=== PATIENT | female | born 1945 | race Caucasian/White ===

== ENCOUNTER → 2019-01-03 | Outpatient (CLI) | payer MEDICARE ==
[~2019-01-03] MED LIST: FEXO180 PO; MULVITMINF PO; PRAV40 PO; PROACE100 PO
== END | disposition home or self-care (01) ==
LOC: LAB SHORT 08:40 → LAB EV 08:40
DX: N39.0 Urinary tract infection, site not specified (principal)
CPT/HCPCS: 87077; 87086; 87186

== ENCOUNTER 2019-02-07 13:56 | Day surgery (SDC) | payer MEDICARE ==
[~2019-02-07] VITALS: Ht 160 cm; Wt 49.3 kg
[~2019-02-07 13:56] MED LIST changes: +BIOTIN1 MG; +CALCIUM 500-VI1 EAC1 PO; +CYAN500; +MAGOXI400; +MONT10T PO; +Naproxen500 M1 PO; +Omeprazole20 M1
--- NOTE | 2019-02-07 14:52 | NUR ---
02/07/19 1452 Asmita Dillard CALL LIGHT WITHIN REACH
== END 2019-02-07 16:22 | disposition home or self-care (01) ==
LOC: ORSCSDS 13:56
PROVIDERS: Surgery
PROC: 0DBK8ZX Excision of Ascending Colon, Via Natural or Artificial Opening Endoscopic, Diagnostic (ICD-10-PCS; principal; 2019-02-07 15:15)
DX: Z12.11 Encounter for screening for malignant neoplasm of colon (principal); D12.2 Benign neoplasm of ascending colon; K57.30 Diverticulosis of large intestine without perforation or abscess without bleeding; Z86.010 Personal history of colon polyps; E78.5 Hyperlipidemia, unspecified; Z79.899 Other long term (current) drug therapy
CPT/HCPCS: J2704; J7120

== ENCOUNTER 2020-04-02 11:38 | Day surgery (SDC) | payer MEDICARE, OTHER ==
[~2020-04-02] VITALS: Ht 160 cm; Wt 51.2 kg
[2020-04-02] MEDS ORDERED: VENL37.5 PO (12:20)
[2020-04-02] MEDS ORDERED: VITAMIN D3125 MC4 PO (12:20)
--- NOTE | 2020-04-02 14:08 | NUR ---
04/02/20 1408 Darlene Varghese (Yadira RECTAL SWAB COLLECTED BY DR. MUNGUIA PER PT'S REQUEST IN ATTEMPTS TO CLEAR ESBL DX.
== END 2020-04-02 14:06 | disposition home or self-care (01) ==
LOC: ORSCSDS 11:38
PROVIDERS: Surgery
PROC: 0DBK8ZX Excision of Ascending Colon, Via Natural or Artificial Opening Endoscopic, Diagnostic (ICD-10-PCS; principal; 2020-04-02 13:00)
DX: Z86.010 Personal history of colon polyps (principal); D12.2 Benign neoplasm of ascending colon; E78.5 Hyperlipidemia, unspecified; Z79.899 Other long term (current) drug therapy
CPT/HCPCS: 87077; 87081; 88305; J2405; J2704; J7120

== ENCOUNTER → 2021-05-18 | Outpatient (CLI) | payer MEDICARE, OTHER ==
[~2021-05-18] MED LIST changes: +VENL37.5 PO; +VITAMIN D3125 MC4 PO
== END | disposition home or self-care (01) ==
LOC: LAB SHORT 12:10 → LAB 12:10
DX: D22.5 Melanocytic nevi of trunk (principal)
CPT/HCPCS: 88305

== ENCOUNTER → 2021-08-07 | Outpatient (CLI) | payer MEDICARE, OTHER | LOC: LAB SHORT 08:30 | DX: R30.0 Dysuria (principal) | CPT/HCPCS: 87077; 87086; 87186 ==

== ENCOUNTER → 2021-10-26 | Outpatient (CLI) | payer MEDICARE, OTHER | END | disposition home or self-care (01) | LOC: LAB SHORT 11:35 → LAB 11:35 | DX: N39.0 Urinary tract infection, site not specified (principal) | CPT/HCPCS: 87077; 87086; 87186 ==

== ENCOUNTER → 2022-06-01 | Outpatient (CLI) | payer MEDICARE, OTHER ==
[2022-06-01 16:05] LABS: BASOPHILS ABSOLUTE AUTO 0.03 K/mm3 (0.00-0.23); BASOPHILS PERCENT AUTO 1 % (0-2); EOSINOPHILS ABSOLUTE AUTO 0.01 K/mm3 (0.00-0.68); EOSINOPHILS PERCENT AUTO 0 % (0-6); Hematocrit 43.1 % (33.0-51.0); Hemoglobin 14.1 g/dL (11.5-16.0); IMMATURE GRAN ABSOLUTE AUTO 0.01 K/mm3 (0.00-0.10); IMMATURE GRAN PERCENT AUTO 0 % (0-1); LYMPHOCYTES ABSOLUTE AUTO 0.67 K/mm3 (0.84-5.20); LYMPHOCYTES PERCENT AUTO 14 % (21-46); MONOCYTES ABSOLUTE AUTO 0.45 K/mm3 (0.16-1.47); MONOCYTES PERCENT AUTO 9 % (4-13); Mean Corpuscular HGB 30.9 pg (26.0-34.0); Mean Corpuscular HGB Conc 32.7 g/dL (31.5-36.5); Mean Corpuscular Volume 95 fL (80-100); Mean Platelet Volume 9.2 fL (9.1-12.4); NEUTROPHILS ABSOLUTE AUTO 3.75 K/mm3 (1.96-9.15); NEUTROPHILS PERCENT AUTO 76 % (41-73); Platelet Count 259 K/mm3 (150-400); RDW Coefficient Variation 12.3 % (11.7-14.2); RDW Standard Deviation 42.7 fL (35.1-46.3); Red Blood Cell Count 4.56 M/mm3 (3.80-5.20); White Blood Cell Count 4.92 K/mm3 (4.00-11.30)
[2022-06-01 16:53] LABS: Alanine Aminotransfer (ALT/SGP 46 U/L (12-78); Albumin, Blood 4.1 g/dL (3.4-5.0); Albumin/Globulin Ratio 1.4 (0.8-1.8); Alk Phos 52 U/L (50-136); Anion Gap 4 mmol/L (6-16); Aspartate Aminotrans (AST/SGOT 39 U/L (12-37); Bilirubin, Total 0.5 mg/dL (0.1-1.0); Blood Urea Nitrogen 17 mg/dL (8-24); Bun/Creatinine Ratio 24.4 (12.0-20.0); CHOL/HDL RATIO 2.2; CO2, Blood 31 mmol/L (21-32); Calcium, Blood 9.6 mg/dL (8.5-10.1); Chloride, Blood 106 mmol/L (98-108); Cholesterol 191 mg/dL (50-200); Globulin, Blood 2.9 g/dL (2.2-4.0); Glomerular Filtration Rate 91 (60-); Glucose, Blood 99 mg/dL (70-99); HDL Cholesterol 86 mg/dL (>39); LDL/HDL RATIO 1.1; Low Density Lipoprotein Chol 94 mg/dL (0-110); Potassium, Blood 3.9 mmol/L (3.5-5.5); Sodium, Blood 141 mmol/L (136-145); Triglycerides 54 mg/dL (30-160); Very Low Density Lipoprot Chol 10 mg/dL (6-32)
== END | disposition home or self-care (01) ==
LOC: LAB SHORT 12:40
PROVIDERS: Internal Medicine
DX: E78.2 Mixed hyperlipidemia (principal)
CPT/HCPCS: 80053; 80061; 85025

== ENCOUNTER → 2022-12-06 | Outpatient (CLI) | payer MEDICARE, OTHER | END | disposition home or self-care (01) | LOC: LAB SHORT 13:10 → LAB 13:10 | DX: R30.0 Dysuria (principal) | CPT/HCPCS: 87077; 87086; 87186 ==

== ENCOUNTER → 2023-03-27 | Outpatient (CLI) | payer MEDICARE, OTHER | END | disposition home or self-care (01) | LOC: LAB SHORT 17:26 → LAB 17:26 | DX: N39.0 Urinary tract infection, site not specified (principal); F44.89 Other dissociative and conversion disorders | CPT/HCPCS: 87077; 87086; 87186 ==

== ENCOUNTER → 2023-10-16 | Outpatient (CLI) | payer MEDICARE, OTHER ==
[2023-10-16 16:32] LABS: BASOPHILS ABSOLUTE AUTO 0.03 K/mm3 (0.00-0.23); BASOPHILS PERCENT AUTO 1 % (0-2); EOSINOPHILS ABSOLUTE AUTO 0.01 K/mm3 (0.00-0.68); EOSINOPHILS PERCENT AUTO 0 % (0-6); Hematocrit 39.1 % (33.0-51.0); Hemoglobin 13.1 g/dL (11.5-16.0); IMMATURE GRAN ABSOLUTE AUTO 0.02 K/mm3 (0.00-0.10); IMMATURE GRAN PERCENT AUTO 1 % (0-1); LYMPHOCYTES ABSOLUTE AUTO 0.89 K/mm3 (0.84-5.20); LYMPHOCYTES PERCENT AUTO 21 % (21-46); MONOCYTES ABSOLUTE AUTO 0.37 K/mm3 (0.16-1.47); MONOCYTES PERCENT AUTO 9 % (4-13); Mean Corpuscular HGB 30.8 pg (26.0-34.0); Mean Corpuscular HGB Conc 33.5 g/dL (31.5-36.5); Mean Corpuscular Volume 92 fL (80-100); Mean Platelet Volume 9.2 fL (9.1-12.4); NEUTROPHILS ABSOLUTE AUTO 2.94 K/mm3 (1.96-9.15); NEUTROPHILS PERCENT AUTO 69 % (41-73); Platelet Count 270 K/mm3 (150-400); RDW Coefficient Variation 12.6 % (11.7-14.2); RDW Standard Deviation 42.4 fL (35.1-46.3); Red Blood Cell Count 4.25 M/mm3 (3.80-5.20); White Blood Cell Count 4.26 K/mm3 (4.00-11.30)
[2023-10-17 19:11] LABS: A/G RATIO 2.3 (1.2-2.2); BILIRUBIN, TOTAL 0.5 mg/dL (0.0-1.2); CALCIUM, SERUM 9.2 mg/dL (8.7-10.3); CREATININE, SERUM 0.66 mg/dL (0.57-1.00); POTASSIUM, SERUM 4.2 mmol/L (3.5-5.2); PROTEIN, TOTAL, SERUM 6.5 g/dL (6.0-8.5)
== END | disposition home or self-care (01) ==
LOC: LAB SHORT 13:37 → LAB 13:37
PROVIDERS: Family Medicine
DX: R41.3 Other amnesia (principal); R79.9 Abnormal finding of blood chemistry, unspecified; F02.82 Dementia in other diseases classified elsewhere, unspecified severity, with psychotic disturbance
CPT/HCPCS: 80053; 84443; 85025

== ENCOUNTER → 2023-11-15 | Outpatient (CLI) | payer MEDICARE, OTHER ==
[2023-11-16 14:17] LABS: Appearance, Urine Cloudy (Clear); Bilirubin, Urine Neg (Neg); Blood, Urine Neg (Neg); Color, Urine Yellow (P-Yellow); Glucose Qualitative, Urine Neg (Neg); Ketones, Urine 1+ (Neg); Leukocyte Esterase, Urine 2+ (Neg); Nitrite, Urine Neg (Neg); Protein, Urine Neg (Neg); Specific Gravity, Urine 1.025 (1.003-1.022); Urobilinogen, Urine NORM (Normal)
[2023-11-16 15:11] LABS: Amorphous Heavy (0-Heavy); Calcium Oxalate Crystals Mod /hpf
[2023-11-16 15:14] LABS: Bacteria Few /hpf; Red Blood Cells, Urine 0-2 /hpf (0-2); Squamous Epithelial Cells Few /hpf (Few); White Blood Cells, Urine 0-2 /hpf (0-5)
== END | disposition home or self-care (01) ==
LOC: LAB SHORT 18:10
PROVIDERS: Family Medicine
DX: N39.0 Urinary tract infection, site not specified (principal)
CPT/HCPCS: 81001; 87086

== ENCOUNTER 2023-11-16 18:53 | Emergency (ER) | payer OTHER, MEDICARE ==
[~2023-11-16] VITALS: Ht 157.5 cm; Wt 45.4 kg
[2023-11-16] MEDS ORDERED: Acetaminophen 325 MG TABLET PO ONE (19:15)
[2023-11-16] MEDS ORDERED: Lidocaine 4% 1 Patch TOP ONE (19:15)
[2023-11-16 19:25] LABS: BASOPHILS ABSOLUTE AUTO 0.03 K/mm3 (0.00-0.23); BASOPHILS PERCENT AUTO 1 % (0-2); EOSINOPHILS ABSOLUTE AUTO 0.03 K/mm3 (0.00-0.68); EOSINOPHILS PERCENT AUTO 1 % (0-6); Hematocrit 39.1 % (33.0-51.0); IMMATURE GRAN ABSOLUTE AUTO 0.01 K/mm3 (0.00-0.10); IMMATURE GRAN PERCENT AUTO 0 % (0-1); LYMPHOCYTES ABSOLUTE AUTO 1.03 K/mm3 (0.84-5.20); LYMPHOCYTES PERCENT AUTO 22 % (21-46); MONOCYTES ABSOLUTE AUTO 0.44 K/mm3 (0.16-1.47); MONOCYTES PERCENT AUTO 9 % (4-13); Mean Corpuscular HGB 30.7 pg (26.0-34.0); Mean Corpuscular HGB Conc 33.2 g/dL (31.5-36.5); Mean Corpuscular Volume 92 fL (80-100); NEUTROPHILS ABSOLUTE AUTO 3.22 K/mm3 (1.96-9.15); NEUTROPHILS PERCENT AUTO 68 % (41-73); Platelet Count 259 K/mm3 (150-400); RDW Coefficient Variation 12.5 % (11.7-14.2); RDW Standard Deviation 42.5 fL (35.1-46.3); Red Blood Cell Count 4.23 M/mm3 (3.80-5.20); White Blood Cell Count 4.76 K/mm3 (4.00-11.30)
[2023-11-16 19:36] LABS: Albumin, Blood 3.9 g/dL (3.4-5.0); Albumin/Globulin Ratio 1.3 (0.8-1.8); Bilirubin, Total 0.5 mg/dL (0.1-1.0); Calcium, Blood 9.1 mg/dL (8.5-10.1); Creatinine, Blood 0.7 mg/dL (0.40-1.00); Potassium, Blood 3.6 mmol/L (3.5-5.5); Total Protein, Blood 6.9 g/dL (6.4-8.2)
[2023-11-16 21:30] VITALS: BP 111/69
== END 2023-11-16 22:59 | disposition home or self-care (01) ==
LOC: ER 18:53
PROVIDERS: Student in an Organized Health Care Education/Training Program
DX: R07.81 Pleurodynia (principal); M54.2 Cervicalgia; E78.5 Hyperlipidemia, unspecified; Z79.899 Other long term (current) drug therapy; Z88.6 Allergy status to analgesic agent; Z88.8 Allergy status to other drugs, medicaments and biological substances; W01.0XXA Fall on same level from slipping, tripping and stumbling without subsequent striking against object, initial encounter
CPT/HCPCS: 70450; 71101; 72125; 80053; 85025; 93005; 93010; 99284-25; A9270

== ENCOUNTER → 2023-11-21 | Outpatient (CLI) | payer MEDICARE, OTHER ==
[2023-11-21 16:16] LABS: BASOPHILS ABSOLUTE AUTO 0.03 K/mm3 (0.00-0.23); BASOPHILS PERCENT AUTO 1 % (0-2); EOSINOPHILS ABSOLUTE AUTO 0.03 K/mm3 (0.00-0.68); EOSINOPHILS PERCENT AUTO 1 % (0-6); Hemoglobin 13.2 g/dL (11.5-16.0); IMMATURE GRAN PERCENT AUTO 0 % (0-1); LYMPHOCYTES ABSOLUTE AUTO 1.14 K/mm3 (0.84-5.20); LYMPHOCYTES PERCENT AUTO 24 % (21-46); MONOCYTES ABSOLUTE AUTO 0.41 K/mm3 (0.16-1.47); MONOCYTES PERCENT AUTO 9 % (4-13); Mean Corpuscular HGB 30.6 pg (26.0-34.0); Mean Corpuscular Volume 93 fL (80-100); Mean Platelet Volume 8.7 fL (9.1-12.4); NEUTROPHILS ABSOLUTE AUTO 3.24 K/mm3 (1.96-9.15); NEUTROPHILS PERCENT AUTO 67 % (41-73); Platelet Count 260 K/mm3 (150-400); RDW Coefficient Variation 12.6 % (11.7-14.2); RDW Standard Deviation 42.8 fL (35.1-46.3); Red Blood Cell Count 4.32 M/mm3 (3.80-5.20); White Blood Cell Count 4.85 K/mm3 (4.00-11.30)
[2023-11-21 16:26] LABS: Albumin, Blood 3.8 g/dL (3.4-5.0); Albumin/Globulin Ratio 1.2 (0.8-1.8); Bilirubin, Total 0.5 mg/dL (0.1-1.0); Creatinine, Blood 0.79 mg/dL (0.40-1.00); Globulin, Blood 3.3 g/dL (2.2-4.0); Potassium, Blood 3.9 mmol/L (3.5-5.5); Total Protein, Blood 7.1 g/dL (6.4-8.2)
== END | disposition home or self-care (01) ==
LOC: LAB SHORT 16:11
PROVIDERS: Chiropractor
DX: E86.0 Dehydration (principal)
CPT/HCPCS: 80053; 85025

== ENCOUNTER 2024-01-19 10:15 | Emergency (ER) | payer OTHER, MEDICARE ==
[~2024-01-19] VITALS: Ht 157.5 cm; Wt 42.6 kg
[~2024-01-19 10:15] MED LIST changes: +ACET325 PO; +CARBLEV25 PO; +CEPH500 PO; +DONEPEZIL HCL10 MG PO; +FAMO20 PO; +LOPE2C PO; +MAGNESIUM OXID500 MG PO; +MIRALAX17 GM PO; +MIRT30 PO; +PRAM.125 PO; +SENN187 PO; +TURMERIC-GINGE1 EACH PO; +VITAMIN B12500 MCG
[2024-01-19 11:22] VITALS: BP 94/75
== END 2024-01-19 12:37 | disposition home or self-care (01) ==
LOC: ER 10:15
DX: S09.90XA Unspecified injury of head, initial encounter (principal); W01.198A Fall on same level from slipping, tripping and stumbling with subsequent striking against other object, initial encounter; Z88.6 Allergy status to analgesic agent; Z88.8 Allergy status to other drugs, medicaments and biological substances; Z79.899 Other long term (current) drug therapy; E78.5 Hyperlipidemia, unspecified
CPT/HCPCS: 70450; 93005; 93010; 99284-25

== ENCOUNTER 2024-03-15 01:08 | Observation (INO) | payer MEDICARE, OTHER ==
[~2024-03-15] VITALS: Ht 157.5 cm; Wt 46.2 kg
[2024-03-15] VITALS (46 sets, daily range): BP systolic 87–138; BP diastolic 49–92
[2024-03-15 02:11] LABS: BASOPHILS ABSOLUTE AUTO 0.01 K/mm3 (0.00-0.23); BASOPHILS PERCENT AUTO 0 % (0-2); EOSINOPHILS PERCENT AUTO 0 % (0-6); Hematocrit 38.1 % (33.0-51.0); Hemoglobin 12.4 g/dL (11.5-16.0); IMMATURE GRAN ABSOLUTE AUTO 0.02 K/mm3 (0.00-0.10); IMMATURE GRAN PERCENT AUTO 0 % (0-1); LYMPHOCYTES ABSOLUTE AUTO 0.16 K/mm3 (0.84-5.20); LYMPHOCYTES PERCENT AUTO 3 % (21-46); MONOCYTES ABSOLUTE AUTO 0.39 K/mm3 (0.16-1.47); MONOCYTES PERCENT AUTO 6 % (4-13); Mean Corpuscular HGB 30.8 pg (26.0-34.0); Mean Corpuscular HGB Conc 32.5 g/dL (31.5-36.5); Mean Corpuscular Volume 95 fL (80-100); NEUTROPHILS ABSOLUTE AUTO 5.62 K/mm3 (1.96-9.15); NEUTROPHILS PERCENT AUTO 91 % (41-73); Platelet Count 203 K/mm3 (150-400); Red Blood Cell Count 4.02 M/mm3 (3.80-5.20)
[2024-03-15 02:26] LABS: Albumin, Blood 3.2 g/dL (3.4-5.0); Bilirubin, Total 0.5 mg/dL (0.1-1.0); Bun/Creatinine Ratio 59.1 (12.0-20.0); Calcium, Blood 8.4 mg/dL (8.5-10.1); Creatinine, Blood 0.51 mg/dL (0.40-1.00); Globulin, Blood 3.1 g/dL (2.2-4.0); Potassium, Blood 3.3 mmol/L (3.5-5.5); Total Protein, Blood 6.3 g/dL (6.4-8.2)
[2024-03-15] MEDS ORDERED: Lactated Ringer's 1,000 ML IV ONE (03:15)
[2024-03-15] MEDS ORDERED: Pantoprazole Sodium 40 MG Injection IV ONE (03:15)
[2024-03-15] MEDS ORDERED: Acetaminophen 325 MG TABLET PO PRN (04:05)
[2024-03-15] MEDS ORDERED: NS KCl 20mEq 1,000 ML IV ONE (04:15)
[2024-03-15] MEDS ORDERED: Ondansetron HCl 2 MG / ML 2ML Vial IV PRN (04:15)
[2024-03-15 04:27] LABS: Magnesium, Blood 1.6 mg/dL (1.6-2.4)
[2024-03-15 06:13] LABS: BASOPHILS ABSOLUTE AUTO 0.01 K/mm3 (0.00-0.23); BASOPHILS PERCENT AUTO 0 % (0-2); EOSINOPHILS PERCENT AUTO 0 % (0-6); Hematocrit 34.6 % (33.0-51.0); Hemoglobin 11.3 g/dL (11.5-16.0); IMMATURE GRAN ABSOLUTE AUTO 0.01 K/mm3 (0.00-0.10); IMMATURE GRAN PERCENT AUTO 0 % (0-1); LYMPHOCYTES ABSOLUTE AUTO 0.35 K/mm3 (0.84-5.20); LYMPHOCYTES PERCENT AUTO 7 % (21-46); MONOCYTES ABSOLUTE AUTO 0.38 K/mm3 (0.16-1.47); MONOCYTES PERCENT AUTO 7 % (4-13); Mean Corpuscular HGB 31.1 pg (26.0-34.0); Mean Corpuscular HGB Conc 32.7 g/dL (31.5-36.5); Mean Corpuscular Volume 95 fL (80-100); Mean Platelet Volume 8.9 fL (9.1-12.4); NEUTROPHILS PERCENT AUTO 86 % (41-73); Platelet Count 174 K/mm3 (150-400); RDW Coefficient Variation 12.9 % (11.7-14.2); Red Blood Cell Count 3.63 M/mm3 (3.80-5.20); White Blood Cell Count 5.35 K/mm3 (4.00-11.30)
[2024-03-15 06:35] LABS: Calcium, Blood 7.7 mg/dL (8.5-10.1); Creatinine, Blood 0.4 mg/dL (0.40-1.00); Potassium, Blood 3.2 mmol/L (3.5-5.5)
[2024-03-15 06:38] LABS: BAND PERCENT MAN 2 % (0-8); BASOPHILS PERCENT MAN 0 % (0-2); EOSINOPHILS PERCENT MAN 0 % (0-6); LYMPHOCYTES ABSOLUTE MAN 0.37 K/mm3 (0.84-5.20); LYMPHOCYTES PERCENT MAN 7 % (21-46); METAMYELOCYTE ABSOLUTE MAN 0.05 K/mm3 (0.00-0.00); METAMYELOCYTE PERCENT MAN 1 % (0-0); MONOCYTES ABSOLUTE MAN 0.32 K/mm3 (0.16-1.47); MONOCYTES PERCENT MAN 6 % (4-13); MYELOCYTE ABSOLUTE MAN 0.05 K/mm3 (0.00-0.00); MYELOCYTE PERCENT MAN 1 % (0-0); NEUTROPHILS ABSOLUTE MAN 4.54 K/mm3 (1.96-9.15); SEG NEUTROPHILS PERCENT MAN 83 % (41-73); TOTAL CELLS COUNTED 100
[2024-03-15] MEDS ORDERED: Levodopa/Carbidopa 100 / 25 MG Tab PO SCH (09:00)
[2024-03-15] MEDS ORDERED: Polyethylene Glycol 3350 17 gm PO SCH (09:00)
[2024-03-15] MEDS ORDERED: Magnesium Oxide 400 MG Tab PO SCH (09:00)
--- NOTE | 2024-03-15 11:05 | NUR ---
"Spiritual care | Pt. request Pt. is resting but responds when I enter the room. Pt. is pleasant but displays evidence of lonliness. Facilitate a short life review and listen with interest, empathy and a calming presence. Pt. verbalizes that she is a resident at [facility]. Pt. displays evidence of being comforted by the visit. Consider matters of aston and belief. Pt. verbalized gratitude for the spiritual care visit and welcomed this soil science professor to return."
[2024-03-15 13:11] LABS: Hematocrit 36.6 % (33.0-51.0); Hemoglobin 11.8 g/dL (11.5-16.0)
[2024-03-15] MEDS ORDERED: Lactated Ringer's 1,000 ML IV SCH (13:15)
[2024-03-15] MEDS ORDERED: propofoL 20 ML IV ONE (13:27)
--- NOTE | 2024-03-15 13:46 | NUR ---
03/15/24 1346 Fab Schwartz MONITOR INTACT WITH CONTINUOUS PULSE OXIMETRY, CONTINUOUS END TITAL CO2, AND INTERMITTENT BLOOD PRESSURE.AND EKG ANESTHESIA PER [employer] ATTENDANT
[2024-03-15] MEDS ORDERED: Pantoprazole Sodium 40 MG Injection IV SCH (16:30)
--- NOTE | 2024-03-15 18:32 | NUR ---
SHIFT SUMMARY; PATIENT ADMIT FROM ER THIS AM. SHE IS ORIENTED TO SELF ONLY. COMES FROM [facility] FOR "COUGHING UP BLOOD CLOTS" WAS CONSULTED AND HE DID AN EGD TODAY THAT WAS NEGATIVE. PATIENT RECOVERED WELL AND NATHALIE NOTED WHEN SHE RETURNED TO ROOM. SHE IS ON A CLEAR LIQUID DIET AND REMAINS CONFUSED THIS AFTERNOON. SHE HAS A DEMENTIA DIAGNOSES ALONG WITH A PARKINSONS DIAGNOSES. SHE IS NOTED TO BE SUNDOWNING THIS LATE AFTERNOON AND IS TRYING TO CLIMB OUT OF BED. BED ALARM IN PLACE AND THIS RN SITS OUTSIDE OF ROOM FOR PATEINT SAFETY. SHE RECEIVED 20MEG IN 1 LITER NS TODAY IV. HER LUNGS ARE DIM. SHE DOES NOT HAVE ACOUGH AND IS ABLE TO SWALLOW HER PILLS ONE AT A TIME WITHOUT CHOKING OR DISCOMFORT. SHE REMAINS A FULL CODE AND PALLIATIVE CARE WILL COME SPEAK WITH HER AND REACH OUT TO FAMILY.
[2024-03-15] MEDS ORDERED: Mirtazapine 30 MG Tab PO SCH (21:00)
[2024-03-15] MEDS ORDERED: Donepezil HCl 5 MG Tab PO SCH (21:00)
[2024-03-15] MEDS ORDERED: Pramipexole DI-HCL 0.125 MG Tab PO SCH (21:00)
[2024-03-16 02:58] VITALS: BP 151/89
[2024-03-16 06:25] LABS: BASOPHILS ABSOLUTE AUTO 0.02 K/mm3 (0.00-0.23); BASOPHILS PERCENT AUTO 0 % (0-2); EOSINOPHILS ABSOLUTE AUTO 0.02 K/mm3 (0.00-0.68); EOSINOPHILS PERCENT AUTO 0 % (0-6); Hematocrit 36.6 % (33.0-51.0); Hemoglobin 12.1 g/dL (11.5-16.0); IMMATURE GRAN ABSOLUTE AUTO 0.02 K/mm3 (0.00-0.10); IMMATURE GRAN PERCENT AUTO 0 % (0-1); LYMPHOCYTES ABSOLUTE AUTO 0.73 K/mm3 (0.84-5.20); LYMPHOCYTES PERCENT AUTO 15 % (21-46); MONOCYTES ABSOLUTE AUTO 0.59 K/mm3 (0.16-1.47); MONOCYTES PERCENT AUTO 12 % (4-13); Mean Corpuscular HGB 31.3 pg (26.0-34.0); Mean Corpuscular HGB Conc 33.1 g/dL (31.5-36.5); Mean Corpuscular Volume 95 fL (80-100); Mean Platelet Volume 8.9 fL (9.1-12.4); NEUTROPHILS ABSOLUTE AUTO 3.61 K/mm3 (1.96-9.15); NEUTROPHILS PERCENT AUTO 72 % (41-73); Platelet Count 169 K/mm3 (150-400); RDW Coefficient Variation 12.9 % (11.7-14.2); RDW Standard Deviation 44.6 fL (35.1-46.3); Red Blood Cell Count 3.87 M/mm3 (3.80-5.20); White Blood Cell Count 4.99 K/mm3 (4.00-11.30)
--- NOTE | 2024-03-16 06:37 | NUR ---
END OF SHIFT SUMMARY PT A&O TO SELF, STATES SHES IN [place]. [place] PLACED FOR URINARY RETENTION, DISTENDED BLADDER WITH BLADDER SCAN SHOWING OVER 500ML AFTER SEVERAL ATTEMPTS TO VOID. PT UP TO BSC, VERY WEAK AND UNSTEADY, REQUIRING 2PERSON ASSIST WITH FWW AND GB. LARGE FORMED DARK BM, NO VALERIO BLOOD. PT TOLERATED PILLS ONE AT A TIME, SIPS OF WATER AND JELLO WITH SUPERVISION.
[2024-03-16 06:49] LABS: Bun/Creatinine Ratio 21.7 (12.0-20.0); Calcium, Blood 7.7 mg/dL (8.5-10.1); Creatinine, Blood 0.51 mg/dL (0.40-1.00); Potassium, Blood 3.6 mmol/L (3.5-5.5)
[2024-03-16 07:11] VITALS: BP 139/85
[2024-03-16] MEDS ORDERED: 1/2 NS 250ml250 ML (13:45)
[2024-03-16] MEDS ORDERED: PANT40 PO (13:45)
--- NOTE | 2024-03-16 16:35 | NUR ---
REPORT RECEIVED VERIFIED, PT A/O VSS A LITTLE CONFUSED BUT IS APPROPRIATE AND ABLE TO FOLLOW DIRECTIONS. ASSISTED PT TO BSC WAS A BLE TO TRANSFER WITH FWW AND THEN WE AMBULATED IN THE BLUE. PT NEEDED MINIMAL ASSIST AND JUST SHORT OF BASELINE. GASTROENTERNOLOGIST IN TO SEE PT AND CLEARED HER OF NEEDING TO STAY ANOTHER NIGHT. DR FELDER GAVE DISCHARGE INSTRUCTIONS PT WAS ASSISTED TO BATHROOM AND CHANGED INTO HOSPITAL PANTS AND GOWN. FRIEND AT BEDSIDE WILL TAKE PT HOME.
== END 2024-03-16 14:00 | disposition hospice, inpatient (51) ==
LOC: ER 01:08 → ERHOLD 01:09 → MEDS 01:09 → ERHOLD 01:09 → MEDS 09:29 → ENPENDDIS 03-16 12:41 → MEDS 03-16 14:00
PROVIDERS: Emergency Medicine; Family Medicine; Internal Medicine; Surgery; ADMIT Student in an Organized Health Care Education/Training Program
PROC: 0DJ08ZZ Inspection of Upper Intestinal Tract, Via Natural or Artificial Opening Endoscopic (ICD-10-PCS; principal; 2024-03-15 13:30)
DX: K92.0 Hematemesis (principal); F03.90 Unspecified dementia, unspecified severity, without behavioral disturbance, psychotic disturbance, mood disturbance, and anxiety; K21.9 Gastro-esophageal reflux disease without esophagitis; Z88.6 Allergy status to analgesic agent; Z88.8 Allergy status to other drugs, medicaments and biological substances; Z79.899 Other long term (current) drug therapy
CPT/HCPCS: 36415; 80048; 80053; 82272; 83735; 85014; 85018; 85025; 86850; 86900; 86901; 93005; 93010; 96361-59; 96365-59; 96366; 96366-59; 96375-59; 96376; 99285-25; A9270; C9113; G0378; J2704; J3480; J7120

== ENCOUNTER 2024-03-28 19:47 | Emergency (ER) | payer OTHER, MEDICARE ==
[~2024-03-28] VITALS: Ht 160 cm; Wt 46.3 kg
[~2024-03-28 19:47] MED LIST changes: +1/2 NS 250ml250 ML; +PANT40 PO
[2024-03-28 19:54] VITALS: BP 94/66
== END 2024-03-28 23:44 | disposition home or self-care (01) ==
LOC: ER 19:47
DX: Z04.3 Encounter for examination and observation following other accident (principal); Z88.8 Allergy status to other drugs, medicaments and biological substances; Z88.6 Allergy status to analgesic agent; Z79.899 Other long term (current) drug therapy; E78.5 Hyperlipidemia, unspecified
CPT/HCPCS: 99283

== ENCOUNTER → 2024-04-14 | Outpatient (CLI) | payer MEDICARE, OTHER ==
[2024-04-15 12:08] LABS: Source, Urine Clean Catch
[2024-04-15 12:55] LABS: Appearance, Urine Clear (Clear); Bilirubin, Urine Neg (Neg); Blood, Urine Neg (Neg); Color, Urine Yellow (P-Yellow); Glucose Qualitative, Urine Neg (Neg); Ketones, Urine Neg (Neg); Leukocyte Esterase, Urine Neg (Neg); Nitrite, Urine Neg (Neg); Protein, Urine Neg (Neg); Urobilinogen, Urine NORM (Normal)
== END ==
LOC: LAB 14:40 → LAB SHORT 14:40
PROVIDERS: Family Medicine
DX: N39.0 Urinary tract infection, site not specified (principal)
CPT/HCPCS: 81003

== ENCOUNTER → 2024-05-14 | Outpatient (CLI) | payer MEDICARE, OTHER ==
[2024-05-14 15:39] LABS: Source, Urine Voided
[2024-05-14 17:32] LABS: Appearance, Urine Clear (Clear); Bilirubin, Urine Neg (Neg); Blood, Urine Neg (Neg); Color, Urine Yellow (P-Yellow); Glucose Qualitative, Urine Neg (Neg); Ketones, Urine Neg (Neg); Leukocyte Esterase, Urine 2+ (Neg); Nitrite, Urine Neg (Neg); Protein, Urine 1+ (Neg); Specific Gravity, Urine 1.015 (1.003-1.022); Urobilinogen, Urine NORM (Normal); pH, Urine 6.5 (5.0-8.0)
[2024-05-14 17:44] LABS: Bacteria Many /hpf; Red Blood Cells, Urine 0-2 /hpf (0-2); Squamous Epithelial Cells Few /hpf (Few)
== END ==
LOC: LAB 15:36 → LAB SHORT 15:36
PROVIDERS: Family Medicine
DX: N39.0 Urinary tract infection, site not specified (principal)
CPT/HCPCS: 81001; 87077; 87086; 87186

== ENCOUNTER 2024-06-12 20:53 | Emergency (ER) | payer MEDICARE, OTHER ==
[~2024-06-12] VITALS: Ht 154.9 cm; Wt 45.4 kg
[2024-06-12 23:00] VITALS: BP 132/81
== END 2024-06-12 23:25 | disposition home or self-care (01) ==
LOC: ER 20:53
DX: Z04.3 Encounter for examination and observation following other accident (principal); K21.9 Gastro-esophageal reflux disease without esophagitis; I10 Essential (primary) hypertension; E78.5 Hyperlipidemia, unspecified
CPT/HCPCS: 99283

== ENCOUNTER → 2024-06-20 | Outpatient (CLI) | payer MEDICARE, OTHER ==
[2024-06-21 16:00] LABS: Source, Urine Voided
[2024-06-21 17:40] LABS: Appearance, Urine Hazy (Clear); Bilirubin, Urine Neg (Neg); Blood, Urine 2+ (Neg); Color, Urine Yellow (P-Yellow); Glucose Qualitative, Urine Neg (Neg); Ketones, Urine Neg (Neg); Leukocyte Esterase, Urine 1+ (Neg); Nitrite, Urine Pos (Neg); Protein, Urine Neg (Neg); Urobilinogen, Urine NORM (Normal)
[2024-06-21 18:00] LABS: Amorphous Light (0-Heavy); Bacteria Many /hpf; Red Blood Cells, Urine 0-2 /hpf (0-2); Squamous Epithelial Cells Rare /hpf (Few); Triple Phosphate Crystals Few /hpf
== END ==
LOC: LAB SHORT 15:57 → LAB 15:57
PROVIDERS: Family Medicine
DX: N39.0 Urinary tract infection, site not specified (principal)
CPT/HCPCS: 81001; 87086

== ENCOUNTER 2024-07-23 03:13 | Emergency (ER) | payer MEDICARE, OTHER ==
[~2024-07-23] VITALS: Ht 157.5 cm; Wt 46.3 kg
[2024-07-23 06:00] VITALS: BP 132/80
== END 2024-07-23 09:45 | disposition home or self-care (01) ==
LOC: ER 03:13
DX: S01.01XA Laceration without foreign body of scalp, initial encounter (principal); F03.90 Unspecified dementia, unspecified severity, without behavioral disturbance, psychotic disturbance, mood disturbance, and anxiety; K21.9 Gastro-esophageal reflux disease without esophagitis; E78.5 Hyperlipidemia, unspecified; M41.9 Scoliosis, unspecified; M85.80 Other specified disorders of bone density and structure, unspecified site; Z88.6 Allergy status to analgesic agent; Z88.8 Allergy status to other drugs, medicaments and biological substances; Z79.899 Other long term (current) drug therapy; W18.30XA Fall on same level, unspecified, initial encounter
CPT/HCPCS: 12002; 70450; 99284-25